=== PATIENT | male | born 1980 | race Caucasian/White ===

== ENCOUNTER 2023-03-30 19:44 | Emergency (ER) | payer OTHER, MEDICAID, SELFPAY ==
[2023-03-30 19:49] VITALS: BP 112/78; PULSE 65; RESP 16; TEMP 36.9; O2SAT 95; BMI 26.3
--- NOTE | 2023-03-30 23:47 | ED.GENADULT ---
HPI - General Adult General Chief complaint: Toxicology Problem Stated complaint: SOB Time Seen by Provider: 03/30/23 19:53 History of Present Illness HPI narrative: 42-year-old male presents with nausea vomiting, feeling a bit shaky and a mild headache for the past few days. He states his symptoms started after he stopped taking all of his medications cold turkey. He states he stopped taking them because he just felt feel like taking them anymore though he does have them with him. He denies blurred vision or trouble with speech. He has no chest pain or shortness of breath. He is had no fever or chills. He denies suicidal or homicidal ideation. Review of Systems Review of Systems Narrative: GENERAL: Denies chills, fatigue, malaise, fever, sweats. HEENT: Denies sinus pain, ear pain, sore throat, difficulty swallowing, dizziness. RESPIRATORY: Denies dyspnea, cough, wheezing, hemoptysis, sputum. CARDIOVASCULAR: Denies chest pain, palpitations, orthopnea, edema, GASTROINTESTINAL: See HPI. : Denies dysuria, frequency, incontinence, hematuria, urinary retention. MUSCULOSKELETAL: denies weakness, joint pain, or bony pain SKIN: Denies rash, skin lesions, or other NEUROLOGIC: See HPI PSYCHIATRIC: No concerning psychosocial issues. 12 point review of systems is negative except for those stated above Exam Narrative Exam Narrative: GENERAL: [42] year old patient appears stated age. Well-developed patient, in mild distress. HEAD: Atraumatic. Normocephalic. EYES: Pupils equal round and reactive. Extraocular motions intact. No scleral icterus. No injection or drainage. ENT: Nose without bleeding, purulent drainage. Throat without erythema, tonsillar hypertrophy or exudate. Airway patent. NECK: Trachea midline. Non tender CARDIOVASCULAR: Regular rate and rhythm without murmurs, gallops, or rubs. RESPIRATORY: Clear to auscultation. Breath sounds equal bilaterally. No wheezes, rales, or rhonchi. GASTROINTESTINAL: Abdomen soft, non-tender, nondistended. EXTREMITIES: No edema or joint tenderness. BACK: Nontender without deformity or crepitance. No flank tenderness. NEURO: AOx3. SKIN: No rash or erythema of visible areas Initial Vital Signs Initial Vital Signs: Vital Signs Temperature 98.4 F 03/30/23 19:49 Pulse Rate 65 03/30/23 19:49 Respiratory Rate 16 03/30/23 19:49 Blood Pressure 112/78 03/30/23 19:49 Pulse Oximetry 95 03/30/23 19:49 Oxygen Delivery Method Room Air 03/30/23 19:49 Course Orders Ordered: Discontinued Medications Ondansetron HCl (Ondansetron 4 Mg Odt Prepack) 1 bottle MISC SEEINSTR ONE Stop: 03/30/23 23:51 Last Admin: 03/31/23 00:20 Dose: 1 bottle Documented By: KYMBERLY Reevaluation(s) Reevaluation #1: Patient feeling much better after above-stated therapies. He is tolerating orals and denies headache, feeling much better. Vital Signs Vital signs: Vital Signs - 8 hr 03/31/23 00:24 03/31/23 02:03 Temperature 97.6 F Pulse Rate 54 L 70 Respiratory Rate 16 16 Blood Pressure 114/72 118/64 Pulse Oximetry 99 98 Oxygen Delivery Method Room Air Room Air Medical Decision Making MDM Narrative Medical decision making narrative: [42] year old patient presents with various symptoms after stopping his medications Multiple etiologies for patient's symptoms considered including, but not limited to: [Medication withdrawal versus other] Prior Charts reviewed in our EMR Primary Historian: patient Patient's symptoms improved over duration of stay with above-stated therapies. Findings and discharge diagnosis discussed with patient/family followed by verbalization of understanding Return precautions discussed with patient/family whom verbalize understanding of diagnosis and plan Discharge Plan Departure Patient Disposition: Home Clinical Impression: Vomiting Instructions: DI for Vomiting -- Adult Activity Restrictions/Additional Instructions: *You have been diagnosed with [ vomiting, likely due to medication withdrawal.] *What to do: *Please continue to take your regular medications as directed. *Please follow up with your primary care provider in 2-3 days, call for an appointment. Let them know you were seen in the Emergency Department and that we ask that you be seen in follow up. We will electronically transmit a record of today's note if your PCP is in our system *If you do not have a primary care provider please contact the [facility] Resource line at [phone]. They will ask some questions about your medical history and help get you set up with a doctor in the community. *Return to Emergency Department if you should have any new, worsening or concerning symptoms, such as [fever greater than 101 F, shaking chills, worsening pain, persistent vomiting or other bothersome symptoms] Stand Alone Forms: Patient Portal/API
[2023-03-31] MEDS: ONDANSETRON 4 MG ODT PREPACK 1 BOTTLE MISC (00:20)
[2023-03-31 00:24] VITALS: BP 114/72; PULSE 54; RESP 16; O2SAT 99
[2023-03-31 02:03] VITALS: BP 118/64; PULSE 70; RESP 16; TEMP 36.4; O2SAT 98
== END 2023-03-31 02:04 | disposition home or self-care (01) ==
PROVIDERS: Emergency Provider Emergency Medicine
DX: R11.2 Nausea with vomiting, unspecified (principal); R07.9 Chest pain, unspecified
CPT/HCPCS: 93005; 99283